=== PATIENT | female | born 1985 | race Two or more races ===

== ENCOUNTER → 2020-03-31 | Outpatient (CLI) | payer OTHER | END | disposition home or self-care (01) | LOC: PRENATAL 10:00 | PROVIDERS: ATTEND Obstetrics & Gynecology Maternal & Fetal Medicine | DX: O35.0XX1 Maternal care for (suspected) central nervous system malformation in fetus, fetus 1 (principal); O35.3XX1 Maternal care for (suspected) damage to fetus from viral disease in mother, fetus 1; O98.512 Other viral diseases complicating pregnancy, second trimester; O09.522 Supervision of elderly multigravida, second trimester; Z36.89 Encounter for other specified antenatal screening; Z3A.20 20 weeks gestation of pregnancy ==

== ENCOUNTER 2020-05-31 19:11 | Inpatient (IN) | payer OTHER ==
[~2020-05-31] VITALS: Ht 154.9 cm; Wt 71.2 kg
[2020-06-01] MEDS ORDERED: ATABEX OB TABL1 EACH (08:24)
== END 2020-06-02 11:31 | DRG 833 ==
LOC: LDR 19:11 → OB/GYN 19:11 → LDR 23:58 → OB/GYN 06-01 09:32
PROVIDERS: ADMIT Obstetrics & Gynecology; ATTEND Obstetrics & Gynecology
PROC: 4A0HXFZ Measurement of Products of Conception, Cardiac Rhythm, External Approach (ICD-10-PCS; principal; 2020-05-31)
DX: O12.13 Gestational proteinuria, third trimester (principal); Z3A.29 29 weeks gestation of pregnancy

== ENCOUNTER → 2020-07-13 | Outpatient (CLI) | payer OTHER ==
[~2020-07-13] MED LIST: ATABEX OB TABL1 EACH; VALTREX1000 MG PO
== END | disposition home or self-care (01) ==
LOC: PRENATAL 07-12 09:00
PROVIDERS: ATTEND Obstetrics & Gynecology Maternal & Fetal Medicine
DX: O26.843 Uterine size-date discrepancy, third trimester (principal); O36.8131 Decreased fetal movements, third trimester, fetus 1; O99.891 Other specified diseases and conditions complicating pregnancy; Z36.89 Encounter for other specified antenatal screening; Z3A.35 35 weeks gestation of pregnancy

== ENCOUNTER 2020-07-31 12:14 | Inpatient (IN) | payer OTHER ==
[~2020-07-31] VITALS: Ht 154.9 cm; Wt 75.3 kg
[~2020-07-31 12:14] MED LIST changes: -VALTREX1000 MG PO
[2020-07-31] MEDS ORDERED: VALTREX1000 MG PO (16:45)
== END 2020-08-05 13:37 | disposition home or self-care (01) | DRG 806 ==
LOC: LDR 12:14 → SURG-SUITE 08-03 21:39
PROVIDERS: ADMIT Obstetrics & Gynecology; ATTEND Obstetrics & Gynecology
PROC: 4A1HXFZ Monitoring of Products of Conception, Cardiac Rhythm, External Approach (ICD-10-PCS; 2020-07-31)
PROC: 3E033VJ Introduction of Other Hormone into Peripheral Vein, Percutaneous Approach (ICD-10-PCS; 2020-08-02)
PROC: 10E0XZZ Delivery of Products of Conception, External Approach (ICD-10-PCS; principal; 2020-08-03)
PROC: 0UQMXZZ Repair Vulva, External Approach (ICD-10-PCS; 2020-08-03)
PROC: 10907ZC Drainage of Amniotic Fluid, Therapeutic from Products of Conception, Via Natural or Artificial Opening (ICD-10-PCS; 2020-08-03)
PROC: 3E0P7VZ Introduction of Hormone into Female Reproductive, Via Natural or Artificial Opening (ICD-10-PCS; 2020-08-03)
DX: O36.8330 Maternal care for abnormalities of the fetal heart rate or rhythm, third trimester, not applicable or unspecified (principal); O41.03X0 Oligohydramnios, third trimester, not applicable or unspecified; Z37.0 Single live birth; O70.0 First degree perineal laceration during delivery; Z3A.37 37 weeks gestation of pregnancy; Z20.822 Contact with and (suspected) exposure to COVID-19